=== PATIENT | female | born 1970 | race African-American/Black ===

== ENCOUNTER 2020-01-20 08:09 | Inpatient (IN) ==
[2020-01-20] MEDS ORDERED: G.I. COCKTAIL PO ONE (08:30)
[2020-01-20] MEDS ORDERED: ASPIRIN PO ONE (08:31)
[2020-01-20] MEDS ORDERED: PLAVIX PO ONE (08:39)
--- NOTE | 2020-01-20 09:00 | PROVIDER DOCUMENTATION ---
HPI-Chest Pain - General Chief Complaint: Chest Pain Stated Complaint: burning in chest Time Seen by Provider: 01/20/20 08:12 Allergies/Adverse Reactions: Patient Allergies Allergy/AdvReac Type Severity Reaction Status Date / Time NSAIDS (Non-Steroidal Allergy VOMITING Verified 01/20/20 09:35 Anti-Inflamma Home Medications: Home Medication List Medication Instructions Recorded Confirmed Last Taken Type NK [No Home Medications] 08/11/17 01/20/20 Unknown History - History of Present Illness-CP Nature of Presenting Problem: Patient is a 49 yo F who presents to the ED c/o "burning" in her chest that started on Monday. She achieved no relief with OTC antacids, she says the chest discomfort is worse with swallowing both solids and liquids. Location: reports: substernal Chest Pain Radiation: reports: no radiation Quality of Pain: reports: burning Severity in ED: moderate Onset/Duration: 3 days ago Timing: still present Context/Activities at Onset: reports: light activity Modifying Factors: improves with: nothing Associated Symptoms: reports: denies symptoms Aspirin Treatment Today: no aspirin today Prior Chest Pain/Cardiac Workup: reports: other (Patient reports she was told she had an arterial blockage 6 years ago in [place].) Similar Symptoms Previously?: Yes Recently Seen Here or By Another Healthcare Provider: No Review of Systems - Adult - REVIEW OF SYSTEMS - ADULT Constitutional: reports: no symptoms reported Eyes: reports: no symptoms reported Ears, Nose, Mouth & Throat: reports: no symptoms reported Cardiovascular: reports: chest pain (Burning) Respiratory: reports: no symptoms reported Gastrointestinal: reports: no symptoms reported Genitourinary: reports: no symptoms reported Musculoskeletal: reports: no symptoms reported Integumentary: reports: no symptoms reported Neurological: reports: no symptoms reported Psychiatric: reports: no symptoms reported Endocrine: reports: no symptoms reported Hematologic/Lymphatic: reports: no symptoms reported Allergic/Immunologic: reports: no symptoms reported All Other Systems: Reviewed and Negative Past History - Adult - PAST MEDICAL HISTORY-ADULT Review of Records: reports: Old Records Reviewed, Nursing Assessment Review, Medications Reviewed, Social history reviewed & non-contributory. Major Childhood Illnesses: reports: denies history Cardiovascular: reports: HTN, [place], other (vascular problem with aorta) Respiratory: reports: denies history Gastrointestinal: reports: denies history Obstetrical/Gynecological: reports: denies history Genitourinary: reports: denies history Musculoskeletal: reports: denies history Neurological: reports: CVA Endocrine/Immune: reports: denies history Other Conditions: reports: denies history - PRIOR SURGERIES/PROCEDURES Surgical/Procedure History: reports: cholecystectomy - IMMUNIZATION STATUS Childhood Immunizations: See Nurse Assessment Flu Vaccine: See Nurse Assessment - FAMILY HISTORY Family History: reviewed, not pertinent - SOCIAL HISTORY Smoking: cigarettes Provider spent 3-5 mins advising pt. on dangers of tobacco.: Discussed manners to quit use, and f/u contacts for add'l counseling. Substance Use: none/never Alcohol Use Frequency: never Living Situation: family Physical Exam-General - PHYSICAL EXAM-ADULT Initial Vital Signs Reviewed: Yes (wnl) - CONSTITUTIONAL General Appearance: appears well - EYES Eyes: PERRL/EOMI - HEAD, EARS, NOSE, MOUTH & THROAT HENMT: normocephalic/atraumatic - NECK Neck: non-tender - RESPIRATORY Respiratory: chest non-tender, lungs clear, normal breath sounds - CARDIOVASCULAR Cardiovascular: normal peripheral pulses, regular rate, rhythm, no edema, no gallop, no JVD, no murmur - GASTROINTESTINAL (ABDOMEN) Abdominal Exam: normal bowel sounds, non tender, soft, no organomegaly - LYMPHATIC Lymphatic: no adenopathy - MUSCULOSKELETAL Back Exam: normal inspection Extremity: normal range of motion - SKIN Integumentary: normal color - NEUROLOGIC Neurologic: grossly normal - PSYCHIATRIC Psych/Mental Status: oriented x 3 - HEART Score HEART Score: History: Slightly Suspicious HEART Score: ECG: Non-Specific Repolarization Disturbance/LBBB/PM HEART Score: Age: 45-65 Years HEART Score: Risk Factors for Atherosclerotic Disease: > or = 3 Risk Factors or History of Atherosclerotic Disease HEART Score: Troponin: 1-3x Normal Limit (Moderate risk) Total HEART Score:: 5 Progress - PLAN OF CARE/RESULTS Progress/Plan/Lab Results: Laboratory Results - last 24 hr 01/20/20 01/20/20 01/20/20 09:22 09:22 09:22 WBC 12.90 H RBC 5.34 Hgb 15.1 Hct 44.0 MCV 82.4 MCH 28.3 MCHC 34.3 RDW Std Deviation 12.9 Plt Count 277 MPV 10.4 Immature Gran % (Auto) 0.2 Neut % (Auto) 79.5 H Lymph % (Auto) 13.2 L [place] % (Auto) 6.2 Eos % (Auto) 0.8 Baso % (Auto) 0.1 Immature Gran # (Auto) 0.03 Neut # (Auto) 10.26 H Lymph # (Auto) 1.70 [place] # (Auto) 0.80 H Eos # (Auto) 0.10 Baso # (Auto) 0.01 PT INR PTT (Actin FS) Sodium 142 Potassium 3.8 Chloride 104 Carbon Dioxide 22 L Anion Gap 16 BUN 14 Creatinine 0.9 Estimated GFR/1.73 m2 > 60 BUN/Creatinine Ratio 16 Glucose 112 H Estimat Average Glucose Hemoglobin A1c Calculated Osmolality 284 Calcium 9.7 Total Bilirubin 0.75 AST 18 ALT 12 Alkaline Phosphatase 84 Creatine Kinase 88 Troponin T High Sens 49 H Total Protein 7.4 Albumin 4.2 Globulin 3.2 Albumin/Globulin Ratio 1.3 Triglycerides Cholesterol LDL Cholesterol VLDL Cholesterol, Calc HDL Cholesterol Coronary Risk Interp TSH Free T4 01/20/20 01/20/20 01/20/20 09:22 09:22 09:22 WBC RBC Hgb Hct MCV MCH MCHC RDW Std Deviation Plt Count MPV Immature Gran % (Auto) Neut % (Auto) Lymph % (Auto) [place] % (Auto) Eos % (Auto) Baso % (Auto) Immature Gran # (Auto) Neut # (Auto) Lymph # (Auto) [place] # (Auto) Eos # (Auto) Baso # (Auto) PT 13.0 INR 0.98 PTT (Actin FS) 29.5 Sodium Potassium Chloride Carbon Dioxide Anion Gap BUN Creatinine Estimated GFR/1.73 m2 BUN/Creatinine Ratio Glucose Estimat Average Glucose 114 Hemoglobin A1c 5.6 Calculated Osmolality Calcium Total Bilirubin AST ALT Alkaline Phosphatase Creatine Kinase Troponin T High Sens Total Protein Albumin Globulin Albumin/Globulin Ratio Triglycerides 173 H Cholesterol 288 H LDL Cholesterol 214 VLDL Cholesterol, Calc 35 HDL Cholesterol 39 L Coronary Risk Interp 7.00 TSH Free T4 01/20/20 09:22 WBC RBC Hgb Hct MCV MCH MCHC RDW Std Deviation Plt Count MPV Immature Gran % (Auto) Neut % (Auto) Lymph % (Auto) [place] % (Auto) Eos % (Auto) Baso % (Auto) Immature Gran # (Auto) Neut # (Auto) Lymph # (Auto) [place] # (Auto) Eos # (Auto) Baso # (Auto) PT INR PTT (Actin FS) Sodium Potassium Chloride Carbon Dioxide Anion Gap BUN Creatinine Estimated GFR/1.73 m2 BUN/Creatinine Ratio Glucose Estimat Average Glucose Hemoglobin A1c Calculated Osmolality Calcium Total Bilirubin AST ALT Alkaline Phosphatase Creatine Kinase Troponin T High Sens Total Protein Albumin Globulin Albumin/Globulin Ratio Triglycerides Cholesterol LDL Cholesterol VLDL Cholesterol, Calc HDL Cholesterol Coronary Risk Interp TSH 2.17 Free T4 1.47 Orders Category Date Time Status Admit - [facility] Routine AdmDCTranf 01/20/20 12:33 Active Notify MD if DIRECTED Care 01/20/20 14:11 Active Old records/chart to unit .From other facility Care 01/20/20 12:37 Active [facility] DIRECTED Care 01/20/20 14:11 Active Vital Signs Order Q 4-HR ASSESS Care 01/20/20 14:11 Active Z-Document. for Tele Applied ORDERED Care 01/20/20 14:11 Active Physician/Provider Consults Routine Cons 01/20/20 12:02 Ordered NPO Diet 01/20/20 12:34 Completed CHEST-2 VIEWS [RAD] Stat Exams 01/20/20 08:32 Completed US AORTA [US] Stat Exams 01/20/20 11:29 Completed A1C HGB W EST AVG GLUCOSE [CHEM] Stat Lab 01/20/20 09:22 Completed CBC WITH ELECTRONIC DIFF [HEME] Q24H Lab 01/21/20 06:00 Ordered CBC WITH ELECTRONIC DIFF [HEME] Q24H Lab 01/22/20 06:00 Ordered CBC WITH ELECTRONIC DIFF [HEME] Q24H Lab 01/23/20 06:00 Ordered CBC WITH ELECTRONIC DIFF [HEME] Q24H Lab 01/24/20 06:00 Ordered CBC WITH ELECTRONIC DIFF [HEME] Q24H Lab 01/25/20 06:00 Ordered CBC WITH ELECTRONIC DIFF [HEME] Q24H Lab 01/26/20 06:00 Ordered CBC WITH ELECTRONIC DIFF [HEME] Q24H Lab 01/27/20 06:00 Ordered CBC WITH ELECTRONIC DIFF [HEME] Stat Lab 01/20/20 09:22 Completed CK PROFILE [SP CHEM] Q8H Lab 01/20/20 19:59 Completed CK PROFILE [SP CHEM] Q8H Lab 01/21/20 04:00 Ordered CK PROFILE [SP CHEM] Stat Lab 01/20/20 09:22 Completed COMPREHENSIVE METABOLIC PANEL [CHEM] Q24H Lab 01/21/20 06:00 Ordered COMPREHENSIVE METABOLIC PANEL [CHEM] Q24H Lab 01/22/20 06:00 Ordered COMPREHENSIVE METABOLIC PANEL [CHEM] Q24H Lab 01/23/20 06:00 Ordered COMPREHENSIVE METABOLIC PANEL [CHEM] Q24H Lab 01/24/20 06:00 Ordered COMPREHENSIVE METABOLIC PANEL [CHEM] Q24 Lab 01/25/20 06:00 Ordered COMPREHENSIVE METABOLIC PANEL [CHEM] Q24H Lab 01/26/20 06:00 Ordered COMPREHENSIVE METABOLIC PANEL [CHEM] Q24H Lab 01/27/20 06:00 Ordered COMPREHENSIVE METABOLIC PANEL [CHEM] Stat Lab 01/20/20 09:22 Completed FREE T4 Stat Lab 01/20/20 09:22 Completed LIPID PROFILE W/CALC LDL [LIPIDS] Routine Lab 01/20/20 09:22 Completed MAGNESIUM [CHEM] Q24 Lab 01/21/20 06:00 Ordered MAGNESIUM [CHEM] Q24 Lab 01/22/20 06:00 Ordered MAGNESIUM [CHEM] Q24 Lab 01/23/20 06:00 Ordered MAGNESIUM [CHEM] Q24 Lab 01/24/20 06:00 Ordered MAGNESIUM [CHEM] Q24 Lab 01/25/20 06:00 Ordered MAGNESIUM [CHEM] Q24 Lab 01/26/20 06:00 Ordered MAGNESIUM [CHEM] Q24 Lab 01/27/20 06:00 Ordered PROTIME WITH INR [COAG] Stat Lab 01/20/20 09:22 Completed PTT [COAG] Stat Lab 01/20/20 09:22 Completed TROPONIN T HIGH SENSITIVITY Q8H Lab 01/20/20 19:59 Completed TROPONIN T HIGH SENSITIVITY Q8H Lab 01/21/20 04:00 Ordered TROPONIN T HIGH SENSITIVITY Stat Lab 01/20/20 09:22 Completed TROPONIN T HIGH SENSITIVITY Stat Lab 01/20/20 13:18 Completed TSH Stat Lab 01/20/20 09:22 Completed URINE DRUG SCREEN Stat Lab 01/20/20 14:02 Completed 0.9% Sodium Chloride Inj [Ns] 1,000 ml Med 01/20/20 12:50 Discontinued .ROUTE As directed Acetaminophen [Tylenol] Med 01/20/20 12:33 Active 650 mg PO Q6H PRN PRN Anesthesia Pb Set 88 in 5742 Med 01/20/20 12:49 Discontinued 1 each .ROUTE .STK-MED ONE Aspirin Med 01/20/20 08:31 Discontinued 325 mg PO NOW ONE Aspirin EC Med 01/21/20 09:00 Active 81 mg PO DAILY [place] [address] Med 01/20/20 12:49 Discontinued 1 each .ROUTE .STK-MED ONE Clopidogrel [Plavix] Med 01/20/20 08:39 Discontinued 300 mg PO NOW ONE Enoxaparin 1 mg/kg [Lovenox 1 mg/kg] Med 01/20/20 10:41 Discontinued 1 each SUBQ NOW ONE Heparin 1000 Units/Ns Med 01/20/20 11:56 Discontinued 2,000 unit in 1,000 ml .ROUTE As directed Hydromorphone [Dilaudid] Med 01/20/20 12:49 Discontinued 1 mg .ROUTE .STK-MED ONE Lido/Rober[place]on Alk/Al&mg Hydrox [G.i. Cocktail] Med 01/20/20 08:30 Discontinued 30 ml PO NOW ONE Metoprolol [Lopressor] Med 01/20/20 11:08 Discontinued 50 mg PO NOW ONE Midazolam [Versed] Med 01/20/20 12:49 Discontinued 2 mg .ROUTE .STK-MED ONE Morphine Med 01/20/20 12:33 Active See Dose Instructions IV Q5M PRN PRN Nitroglycerin Med 01/20/20 11:08 Discontinued 1 inch TOP NOW ONE Nitroglycerin Sl [Nitroglycerin] Med 01/20/20 12:33 Active 0.4 mg SL Q5M PRN PRN Omeprazole [Prilosec] Med 01/20/20 21:00 Active 20 mg PO BID Ondansetron [Zofran] Med 01/20/20 12:33 Active 4 mg IV Q4H PRN PRN Verapamil [Isoptin] Med 01/20/20 11:56 Discontinued 10 mg .ROUTE .STK-MED ONE Oxygen Device Routine Oth 01/20/20 14:11 Completed Telemetry [OM.EQ] Routine Oth 01/20/20 14:11 Active EKG [EKG] Routine Ther 01/21/20 07:00 Ordered EKG [EKG] Stat Ther 01/20/20 08:20 Draft EKG [EKG] Stat Ther 01/20/20 10:19 Draft Echo Spec/Color Doppler Routine Ther 01/20/20 11:29 Ordered Left or Right Heart Cath Routine Ther 01/20/20 11:29 Ordered Transfer/Admit Order [TRANSFER] Routine Transfer 01/20/20 12:29 Completed Result Diagrams: 01/20/20 09:22 01/20/20 09:22 - EKG 1 Time of EKG reading by physician:: 08:30 EKG Read and Signed by:: Cherri Ramsey EKG Interpretation (*Must complete 3 of following elements*): Abnormal Rate: 90 Rhythm: NSR [place]: left ST Wave: non-specific ST changes (ST elevation in V3 and t wave inversions V5- V6) 2 Time of EKG reading by physician:: 10:40 EKG Read and Signed by:: Cherri Ramsey Rate: 107 Rhythm: Sinus tachycardia [place]: left ST Wave: depressed (Lateral leads) Prior EKG Comparison: changes noted (ST depression now evident in lateral leads) - XRAY 1 XRAY Study: Chest, other Impression: See EMR Report (EXAM: CHEST-2 VIEWS HISTORY: chest pain TECHNIQUE: Two views COMPARISON: 08/11/2017 FINDINGS: The lungs are well expanded. The heart is not enlarged. The vessels are not distended. There are no infiltrates. No pleural effusions. IMPRESSION: No acute abnormality. Electronically signed by Bryn Felix 01/20/2020 8:56 AM 01/20/20855 Interpreting Physician: Bryn Felix MD Dictated Date/Time: 01/20/20855 cc: Cherri Ramsey MD; None,PCP) - CONSULTS/PCP/HOSPITALIST Notification #1 *Consult/PCP/Hospitalist*: [id number] Time Discussed: 11:10 (Patient seen in the ED by cardio, will be taken to dental lab technician ) Reason/Comments: NSTEMI Consult Disposition: Will see in ED #2 Consult: Hospitalist Time Discussed: 11:47 (Admit to Dr. Pickering) Departure - Departure Date of Disposition Decision: 01/20/20 Time of Disposition Decision: 11:21 DIAGNOSIS: NSTEMI (non-ST elevated myocardial infarction) Disposition: ADMITTED INPATIENT 09 Certified Medical Emergency: Emergent Condition: Serious - Critical Care Note This patient required my direct & personal management of CC.: No Attestation - Physician/ ELLI Attestation Patient care was provided by Advanced Practice Provider:: No The physician spent face to face time with patient:: Yes Advanced Practice Provider documentation review:: Supervising physician onsite and consulted in the evaluation and care of this patient. The physician did have a face to face encounter with the patient.
[2020-01-20 09:54] LABS: BASO# 0.01 X1000 (0.0-0.2); BASO% 0.1 % (0.0-0.8); EOS% 0.8 % (0.0-10.0); HEMOGLOBIN 15.1 g/dL (12.0-16.0); IMM GRAN# 0.03 X1000 (0.0-0.04); IMM GRAN% 0.2 % (0.0-0.5); LYMPH% 13.2 % (20.5-51.1); MCH 28.3 PG (27-31); MCHC 34.3 g/dL (33-37); MCV 82.4 FL (81-99); MONO% 6.2 % (1.7-9.3); MPV 10.4 FL (7.4-10.4); NEUT# 10.26 X1000 (1.4-6.5); NEUT% 79.5 % (42.2-75.2); PLT 277 X1000 (130-400); RBC 5.34 XMIL (4.2-5.4); RDW 12.9 % (11.5-14.5)
[2020-01-20 10:01] LABS: INR 0.98
[2020-01-20 10:02] LABS: PTT 29.5 Seconds (22.3-41.8)
[2020-01-20 10:13] LABS: AGAP 16; ALB/GLOB RATIO 1.3; ALBUMIN 4.2 g/dL (3.5-5.0); ALKALINE PHOSPHATASE 84 U/L (32-104); BUN 14 mg/dL (8-22); CALCIUM 9.7 mg/dL (8.8-10.2); CHLORIDE 104 mmol/L (98-107); CK PROFILE 88 U/L (24-173); COSMO 284; CREATININE 0.9 mg/dL (0.5-0.9); ESTIMATED GFR > 60; GLUCOSE 112 mg/dL (70-104); GOT 18 U/L (10-30); GPT 12 U/L (10-36); POTASSIUM 3.8 mmol/L (3.5-5.1); SODIUM 142 mmol/L (136-145); TCO2 22 mmol/L (25-35); TOTAL BILIRUBIN 0.75 mg/dL (0.20-1.00); TOTAL PROTEIN 7.4 g/dL (6.3-8.3)
--- NOTE | 2020-01-20 10:22 | EKG Report ---
Test Performed on : 01/20/2020 08:25:50 AM Test Reason : CP Blood Pressure : / mmHG Vent. Rate : 090 BPM Atrial Rate : 090 BPM P-R Int : 176 ms QRS Dur : 104 ms QT Int : 378 ms P-R-T Axes : 048 -14 042 degrees QTc Int : 462 ms Normal sinus rhythm. Possible Left atrial enlargement Left ventricular hypertrophy T wave abnormality, consider lateral ischemia Prolonged QT Abnormal ECG When compared with ECG of 11-AUG-2017 23:33, premature ventricular complexes. are no longer present WA interval has decreased Unconfirmed Result
--- NOTE | 2020-01-20 10:36 | EKG Report ---
Test Performed on : 01/20/2020 10:35:13 AM Test Reason : CP Blood Pressure : / mmHG Vent. Rate : 107 BPM Atrial Rate : 107 BPM P-R Int : 172 ms QRS Dur : 104 ms QT Int : 362 ms P-R-T Axes : 067 -14 069 degrees QTc Int : 483 ms Sinus tachycardia. Biatrial enlargement Left ventricular hypertrophy with repolarization abnormality Abnormal ECG When compared with ECG of 20-JAN-2020 08:25, (Unconfirmed) No significant change was found Unconfirmed Result
[2020-01-20] MEDS ORDERED: LOVENOX 1 MG/KG SUBQ ONE (10:41)
[2020-01-20] MEDS ORDERED: LOPRESSOR PO ONE (11:08)
[2020-01-20] MEDS ORDERED: NITROGLYCERIN TOP ONE (11:08)
[2020-01-20] MEDS ORDERED: HEPARIN 1000 UNITS/NS 2,000 UNIT/1,000 ML IV.SOLN ONE (11:56)
[2020-01-20] MEDS ORDERED: ISOPTIN ONE (11:56)
--- NOTE | 2020-01-20 12:30 | CARDIOLOGY CONSULTATION ---
DATE: 01/20/2020 CHIEF COMPLAINT ON PRESENTATION: Chest and abdominal pain. HISTORY OF PRESENT ILLNESS: Ms. Santos is a 49-year-old, black female with a history of hypertension, who has been noncompliant with followup with primary care physicians. She presents for evaluation of this symptom that has been going on for several days. It is described as a burning sensation, and seems to hurt most when she swallows foods and liquids. There is no overt exertional complaint. She has been taking some [id number] chewable antacids with limited relief. She reports no previous cardiac history, but it sounds like she has been told that she has aortic vascular disease, and has not been followed up regarding this. This was diagnosed in [place] when she was visiting family, and she never followed up with it afterwards. She denies any overt orthopnea. PAST MEDICAL HISTORY: Significant for: 1. Presumed aortic atherosclerosis. She was told several years ago in [place] that she had a possibly occluded aorta, but she has not followed up. 2. Hypertension, not compliant with medications. 3. Hyperlipidemia, not compliant with medications. SOCIAL HISTORY: She does smoke. She works at [employer]. FAMILY HISTORY: Significant for hypertension. REVIEW OF SYSTEMS: A 10-system review of systems is negative, except for those things mentioned in the HPI. PHYSICAL EXAMINATION: Vital Signs: She is afebrile, heart rate is 109, blood pressure 130/75. General: She is in no acute distress, sitting up in bed. HEENT: Oropharynx is moist. Normal dentition. Eye examination shows pink conjunctivae, white sclerae. Neck: No obvious thyromegaly or thyroid tenderness. Cardiovascular: She sounds to be in a regular rate and rhythm. She has no obvious murmurs. She has no S3. She has no lower extremity edema. Chest: Clear bilaterally. She has no increased work of breathing. Abdomen: Soft, nontender, nondistended. She has no obvious organomegaly. Skin: Warm and dry throughout without any rashes. Neurological: She is moving all extremities well. She has no lateralizing deficits. PERTINENT DATA: Her chest x-ray shows essentially an unremarkable study with no acute abnormalities. She had 2 separate EKGs. The initial demonstrates sinus rhythm, nonspecific lateral changes with poor data quality. The subsequent that was taken on 01/20/2020 at 10:35 shows sinus rhythm, rate of 107 beats per minute. She has ischemic-appearing ST-segment depression and T-wave inversions in V4 through V6. Her lab data demonstrates a white count of 12.9, hematocrit of 44, platelet count is 277,000. Her sodium is 142, potassium 3.8, BUN is 14, creatinine 0.9. Her initial troponin was 49. This was checked at 9:22 this morning. ASSESSMENT: Ms. Santos is a 49-year-old female with a history of vascular disease and hypertension, as well as continued smoking, who presented with chest pain that is atypical for coronary ischemia. PLAN: At this point, her symptoms are very atypical. However, she has an elevated troponin, a history of presumed aortic vascular disease, continued tobacco use, and an EKG that is suggestive of ischemic changes. I would recommend cardiac catheterization for further delineation of her coronary anatomy. Presently, she has been loaded on Plavix, as well as given an aspirin. She was given a 50 mg dose of metoprolol. Will proceed from there. I have ordered an echo, as well as an aorta ultrasound to further evaluate the previously noted history. cc: Ritesh Riley MD
[2020-01-20 12:31] LABS: CHOLESTEROL 288 mg/dL (0-200); HDL 39 mg/dL (45-65); LDL 214 mg/dL; TRIGLYCERIDES 173 mg/dL (35-135); VLDL 35 mg/dL
[2020-01-20] MEDS ORDERED: TYLENOL PO PRN (12:33)
[2020-01-20] MEDS ORDERED: ZOFRAN IV PRN (12:33)
[2020-01-20] MEDS ORDERED: NITROGLYCERIN SL PRN (12:33)
[2020-01-20] MEDS ORDERED: MORPHINE IV PRN (12:33)
[2020-01-20] MEDS ORDERED: CLAVE TWINSITE 32 IN 11959 ONE (12:49)
[2020-01-20] MEDS ORDERED: VERSED ONE (12:49)
[2020-01-20] MEDS ORDERED: ANESTHESIA PB SET 88 IN 5742 ONE (12:49)
[2020-01-20] MEDS ORDERED: DILAUDID ONE (12:49)
[2020-01-20] MEDS ORDERED: NS 1,000 ML ONE (12:50)
[2020-01-20 13:00] LABS: HEMOGLOBIN A1C 5.6 % (4.8-6.0)
[2020-01-20 13:08] LABS: FREE T4 1.47 ng/dL (0.93-1.70); TSH 2.17 uIUmL (0.27-4.20)
[2020-01-20] MEDS ORDERED: ZOFRAN ONE (13:50)
--- NOTE | 2020-01-20 14:16 | CARDIAC CATH REPORT ---
PROCEDURE NAME: - INDICATION: Non ST-elevation NE. PROCEDURES PERFORMED: 1. Left heart catheterization. 2. Selective coronary angiography. 3. Left ventriculogram. PROCEDURE IN DETAIL: Ms. Santos was brought to the catheterization laboratory in a fasting state. Informed consent was obtained. Prepped in the usual fashion. She was anesthetized over the right radial artery, and a 5-Jamaican sheath was placed via true Seldinger technique. Radial cocktail was administered. Catheters were introduced. Hemodynamic measurements were made in the ascending thoracic aorta. Coronary angiography was performed in multiple views using JL-3.5 and JR-4 diagnostic catheters. Left heart catheterization and left ventriculogram were performed using a 5-Jamaican angled pigtail. At the conclusion of the procedure, all sheaths and catheters were removed. TR band was left inflated at 8 mL of air. Good capillary refill. Good hemostasis. 10 mL of blood loss. 105 mL of IV contrast. No apparent complications. FINDINGS: 1. The left main originates from the left coronary cusp. There is diffuse, roughly 10% to 20% disease. 2. Left anterior descending originates from the left main. There is a late proximal, early midvessel 90% lesion. There is a very large diagonal versus obtuse marginal that comes off very early. This appears to have proximal 30% to 40% disease, late vessel mild luminal regularities. There is a cascade of diagonal branches that come off that are relatively small after that. The distal left anterior descending wraps around the apex. 3. The circumflex is essentially occluded proximally, after what it appears it gives off a very large obtuse marginal. This obtuse marginal branch does not appear to have any significant obstruction. It appears to have 30% to 40% disease proximally, mild luminal irregularities in the more distal vessel. 4. Right coronary is largely nondominant. There does appear to be some very small severe branch vessel disease that is seen with some [id number] collateralization. Overall, I do not see any clear severe obstructions in the right coronary. There does appear to be ostial 30% to 40% disease. 5. Aortic blood pressure 160/79, with a mean of 111. Left ventricle pressure 152/19, with an LVEDP of 38. 6. Left ventriculogram demonstrates a reduced ejection fraction on the order of 35% to 40%. There is akinesis of the apex and the distal inferior wall, as well as the more basal inferior wall. There does appear to be 2+ to 3+ mitral regurgitation. Relative hypokinesis of the anterior wall as well. The LV cavity appears large. ASSESSMENT: Ms. Santos is a 49-year-old female who has been noncompliant with antihypertensive therapy, antihyperlipidemic therapy, and smoking cessation. She reportedly has a history of aortic vascular disease, which is unclear right now. She presented with chest discomfort, abnormal electrocardiogram, and elevated cardiac enzymes. 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 We will discuss the case with the interventionalist at [facility]. We will continue to do risk factor assessment with an ultrasound of her abdominal aorta, evaluation of her echo. We will check a hemoglobin A1c as well. I will initiate her on Entresto 24/26 b.i.d. and metoprolol at 25 b.i.d. We will start Lipitor 40 mg p.o. at bedtime. Check laboratories in the morning, as well as an EKG. I will give her 40 mg of Lasix this evening, as well as 40 mg daily thereafter. The ER loaded her with 300 mg of Plavix earlier. We will discuss the case with the Interventional Service. cc: Ritesh Riley MD
[2020-01-20 14:30] LABS: UR AMPHETAMINES QUAL NONE DETECTED (NONE DETECT); UR BARBITUATES QUAL NONE DETECTED (NONE DETECT); UR BENZODIAZEPIN QUAL NONE DETECTED (NONE DETECT); UR CANNABINOIDS QUAL PRESUMPTIVE POSITIVE (NONE DETECT); UR COCAINE QUAL NONE DETECTED (NONE DETECT); UR METHADONE QUAL NONE DETECTED (NONE DETECT); UR OPIATES QUAL NONE DETECTED (NONE DETECT); UR OXYCODONE QUAL NONE DETECTED (NONE DETECT); UR PCP QUAL NONE DETECTED (NONE DETECT)
[2020-01-20] MEDS ORDERED: SODIUM CHLORIDE 0.9% INJ PRN (14:32)
[2020-01-20] MEDS ORDERED: PHENERGAN IV PRN (14:32)
[2020-01-20] MEDS ORDERED: LOVENOX SUBQ ONE (14:45)
[2020-01-20 14:50] LABS: URINE SOURCE CLEAN CATCH
--- NOTE | 2020-01-20 14:54 | HISTORY AND PHYSICAL ---
PRIMARY CARE PROVIDER: No one. CHIEF COMPLAINT: Chest pain. HISTORY OF PRESENT ILLNESS: Ms. Irma Santos is a 49-year-old, female with a medical history of medical noncompliance, hyperlipidemia, hypertension, and possible aortic atherosclerosis. She reports that around 5 or 6 years ago, she went to [facility] in [place], [place], where she was told she had aortic blockage, so we are attempting to get medical records from that. She states that Monday, she started having some chest pain, mostly with p.o. intake, even to the point it would make her sternum feel tender. Rest would make the chest pain improve. It felt like fire behind the sternum. It would occasionally make her nauseated with vomiting, dizzy and lightheaded, but it would not radiate. The symptoms would not improve this morning, so she came for medical attention. She did have slight elevation in the troponin. The first troponin was 49, and the EKG was reported as having some ST depression through some lateral leads. Dr. Riley was consulted by the ER staff, who now plans on doing a left heart catheterization for further evaluation. PAST MEDICAL HISTORY: 1. Hyperlipidemia. 2. Hypertension. 3. Medical noncompliance. 4. Reported aortic blockage or aortic atherosclerosis. 5. Fibromyalgia. 6. Glaucoma. PAST SURGICAL HISTORY: 1. Four sections. 2. Cholecystectomy. 3. Hysteroscopy. SOCIAL HISTORY: Less than a half pack per day smoker, started at the age of 28. No alcohol. Smokes marijuana about twice a week. 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 FAMILY HISTORY: Unknown. She is adopted. ALLERGIES: NSAIDs cause vomiting. HOME MEDICATIONS: None. REVIEW OF SYSTEMS: A 14-point review of systems was complete, and all are negative, except for those mentioned above in the HPI. PHYSICAL EXAMINATION: VITAL SIGNS: Temperature 97.9 degrees, heart rate 109, respiratory rate 20, blood pressure 130/75, O2 saturation 98% on room air. Height 5 feet 2 inches tall, 140 pounds, BMI is 25.6. GENERAL: Ms. Irma Santos is a 49-year-old, female. She is in no acute distress. She is able to answer questions appropriately. HEENT: Atraumatic, normocephalic. Pupils equal, round, reactive to light. Extraocular movements intact. Mucous membranes are moist. NECK: Trachea midline. CARDIOVASCULAR: S1, S2. Regular rate and rhythm. No rubs, gallops, murmurs. No lower extremity edema. There are +2 dorsalis and radial pulses. Negative JVD or carotid bruits. PULMONARY: Clear to auscultation. Bilateral breath sounds. No accessory muscle use or work of breathing noted. GI: Soft, nontender, nondistended. Positive bowel sounds x4. EXTREMITIES: Moves all extremities equally. Full range of motion. NEUROLOGIC: A and O x3. Follows commands. Sensory is intact. SKIN: Warm, dry, intact. LABORATORY DATA: White blood cells 12,000, hemoglobin 15, hematocrit 44, platelet count 277,000. INR 0.98, PTT is 29.5. Sodium 142, potassium 3.8, BUN 14, creatinine 0.9, glucose 112, calcium 9.7. Bilirubin 0.75, AST 18, ALT 12. CK 88, troponin is 49. Albumin 4.2. Triglycerides 173, cholesterol total is 288, LDL is 214, HDL 39. IMAGING: Chest x-ray negative for any acute findings. EKG at 8:20 showed normal sinus rhythm, rate 90, QTc is 462. There did appear to be some ST elevation in lead V3. The EKG at 10:19 a.m. showed sinus tachycardia, rate 107, QTc was 483, and there appears to be some T-wave inversion in leads V4 and V5. ASSESSMENT AND PLAN: 1. Chest pain, possible non ST-elevation myocardial infarction. However, she describes the pain to be almost gastrointestinal, and then there is tenderness when you palpate the sternum. However, it would improve with rest. First troponin was 49. She did have some ST changes in her lateral leads. Dr. Riley was consulted, and she is going to go for a left heart catheterization via the radial approach. In the emergency room, she has received 1 mg/kg of Lovenox, aspirin, Plavix load, gastrointestinal cocktail. She got 50 of metoprolol and an inch of nitroglycerin paste. Will do serial cardiac enzymes, and will transfer her to [facility] for closer observation. 2. Reported aortic blockage or atherosclerosis at another hospital location. We are going to attempt to get those medical records. In the meantime, she has had a stat ultrasound of the aorta ordered to evaluate that. 3. Hyperlipidemia with hypertriglyceridemia. Will need to start her on a statin. 4. Hypertension. She did get metoprolol, but she has not really been all that hypertensive here. She will probably need to resume with the beta art postprocedure. 5. Tobacco abuse. Cessation discussed. 6. Medical noncompliance. Dictated by RASHMI Prince for Shawn Pickering MD cc: RASHMI Prince MD
[2020-01-20 14:55] LABS: BILIRUBIN URINE NEGATIVE (NEGATIVE); BLOOD URINE SMALL (NEGATIVE); COLOR YELLOW; GLUCOSE URINE NEGATIVE (NEGATIVE); KETONE URINE NEGATIVE (NEGATIVE); LEUKOCYTES URINE SMALL (NEGATIVE); NITRITE URINE NEGATIVE (NEGATIVE); PH URINE 6.5; PROTEIN URINE TRACE mg/dL (NEGATIVE); TURBIDITY URINE CLEAR (CLEAR); UR EPITHELIAL CELLS >10 /HPF (<10); URINE BACTERIA NEGATIVE /HPF; URINE WBC <10 /HPF (<10); UROBILINOGEN URINE NORMAL (NORMAL)
[2020-01-20] MEDS ORDERED: LASIX IV ONE (15:00)
--- NOTE | 2020-01-20 15:40 | EKG Report ---
Test Performed on : 01/20/2020 3:29:53 PM Test Reason : post LHC and chest pain Blood Pressure : / mmHG Vent. Rate : 080 BPM Atrial Rate : 080 BPM P-R Int : 204 ms QRS Dur : 114 ms QT Int : 456 ms P-R-T Axes : 036 -22 258 degrees QTc Int : 525 ms Normal sinus rhythm. Possible Left atrial enlargement Left ventricular hypertrophy with repolarization abnormality Possible Inferior infarct , age undetermined Prolonged QT Abnormal ECG When compared with ECG of 20-JAN-2020 10:35, (Unconfirmed) Non-specific change in ST segment in Inferior leads T wave inversion more evident in Anterior leads Confirmed by Dale PEREZ, MSydney Venegas ([id number]) on 01/20/2020 5:31:47 PM
--- NOTE | 2020-01-20 16:19 | Diag Imaging Result Doc PS360 ---
EXAM: US AORTA INDICATION: Hx of severe Ao vascular disease with no follow up TECHNIQUE: COMPARISON: None. FINDINGS: There is patchy atherosclerotic calcification associated with the abdominal aorta. However, there is no evidence of aortic aneurysm. The maximum diameter of the aorta is at the proximal aorta where it measures 2 cm in the greatest dimension. The infrarenal aorta measures up to 1.2 cm in diameter. There is no evidence of iliac artery aneurysm with both iliac arteries measuring up to 0.7 cm in diameter. IMPRESSION: Aortic atherosclerotic calcification but no evidence of aortic aneurysm. Electronically signed by Jamil Driscoll 01/20/2020 4:17 PM
--- NOTE | 2020-01-20 18:19 | HISTORY AND PHYSICAL ---
ADDENDUM REPORT HISTORY OF PRESENT ILLNESS: I have seen and examined Ms. Santos today. Ms. Santos presented because of chest pain for the past 3 days. She is hypertensive and also a chronic smoker. She said she was using some [id number]-[id number] medications for the chest pain which did not improve. Upon presenting to the emergency room, she was evaluated and was found to be fairly stable in her vitals. Blood pressure of 138/80, pulse of 85, respirations 16. EKG showed some T-wave inversion in the lateral leads and she was found to have an abnormal troponin. She was admitted for atypical chest pain versus non-STEMI. A left heart catheterization was done, which the report shows that she has multivessel disease largely contained in the left system with severe left anterior descending lesion and occluded circumflex. She is currently being evaluated for possible transfer to [facility]. ASSESSMENT: 1. Non-STEMI. 2. Severe coronary artery disease with occlusion in the circumflex and 90% occlusion in the left anterior descending artery. 3. Congestive heart failure secondary to ischemic cardiomyopathy. 4. Hypertension. 5. Dyslipidemia. 6. Tobacco use and abuse. The plan is to continue with the current medications. Follow up with further recommendations from Cardiology. Please refer to the details of the history and physical by the nurse practitioner in the chart. I have discussed the plan with her. cc: MD ANTONIETA Castro
[2020-01-20] MEDS: ENTRESTO 24 MG-26 MG TABLET PO SCH (20:02)
[2020-01-20] MEDS: LIPITOR PO SCH (20:02)
[2020-01-20] MEDS: PRILOSEC PO SCH (20:02)
[2020-01-20] MEDS: LOPRESSOR PO SCH (20:03)
[2020-01-21 06:28] LABS: HEMOGLOBIN A1C 5.6 % (4.8-6.0)
--- NOTE | 2020-01-21 07:43 | PROGRESS NOTE ---
DATE: 01/21/2020 SUBJECTIVE: The patient reports breathing okay. No chest pain. No shortness of breath. No palpitations. OBJECTIVE: Vital Signs: Temperature 97.5 degrees, heart rate 100, respiratory rate 19, blood pressure 104/50, and O2 saturation 97% on room air. General: On examination, this is a 49-year- old female lying in bed, in no acute distress. Cardiovascular: S1 and S2 heard. No murmurs, gallops, or rubs. Regular rate and rhythm. Respiratory: Clear bilaterally to auscultation. No work of breathing or using accessory muscles. Abdomen: Soft, nontender to palpation. Bowel sounds present. No organomegaly. Extremities: No clubbing, cyanosis, or edema. Peripheral pulses present in both legs. Neurological: The patient is alert and oriented x3. Moves 4 extremities. LABORATORY DATA: Hemoglobin A1c is 5.6. No labs from today. ASSESSMENT AND PLAN: 1. Zvs-PS-rcggqii elevation myocardial infarction. The patient was admitted because of chest pain here and also because of a past medical history of aortic sclerosis. An ultrasound was ordered which returned normal. The patient has been evaluated by Cardiology. Considering her history of vascular disease and hypertension poorly controlled, they decided to do a cardiac catheterization. She has multivessel disease. They are planning to talk to interventional cardiology and I have discussed with them to see if this patient can be transferred over there. At this point, we will continue with medical treatment with Lipitor 40 mg by mouth at bedtime and also Plavix. The patient has received 1 dose of Lasix. Currently, she is breathing okay, not having any chest pain. Having currently Lovenox 1 mg/kg every 12 hours, beta-blockers as well. We will continue with the same management. 2. Hyperlipidemia. We will continue with statin. 3. Hypertension. Blood pressure is much better controlled. We will continue with the same management. 4. Tobacco abuse. Cessation has been discussed with this patient again today. 5. Medical noncompliance. Aware. 6. Disposition. At this point, we are we are going to talk to Cardiology to see this patient. She will need to be transferred to [facility]. We will follow recommendations from them. cc: Gunnar Bobby MD
--- NOTE | 2020-01-21 07:59 | EKG Report ---
Test Performed on : 01/21/2020 06:48:55 AM Test Reason : chest pain Blood Pressure : / mmHG Vent. Rate : 080 BPM Atrial Rate : 080 BPM P-R Int : 188 ms QRS Dur : 106 ms QT Int : 448 ms P-R-T Axes : 060 -15 232 degrees QTc Int : 516 ms Sinus rhythm. with occasional premature ventricular complexes. Possible Left atrial enlargement Left ventricular hypertrophy with repolarization abnormality Prolonged QT Abnormal ECG When compared with ECG of 20-JAN-2020 15:29, premature ventricular complexes. are now present Confirmed by Patricia Hunter MD ([id number]) on 01/21/2020 4:19:27 PM
[2020-01-21] MEDS: PRILOSEC PO SCH ×2 (08:45→20:26)
[2020-01-21] MEDS: LOPRESSOR PO SCH ×2 (08:45→20:26)
[2020-01-21] MEDS: ASPIRIN EC PO SCH (08:45)
[2020-01-21] MEDS: ENTRESTO 24 MG-26 MG TABLET PO SCH ×2 (08:45→20:26)
[2020-01-21 08:49] LABS: BASO# 0.01 X1000 (0.0-0.2); BASO% 0.1 % (0.0-0.8); EOS# 0.04 X1000 (0.0-0.7); EOS% 0.3 % (0.0-10.0); HEMOGLOBIN 14.8 g/dL (12.0-16.0); IMM GRAN# 0.02 X1000 (0.0-0.04); IMM GRAN% 0.2 % (0.0-0.5); LYMPH# 3.23 X1000 (1.2-3.4); MCH 28.4 PG (27-31); MCHC 34.4 g/dL (33-37); MCV 82.4 FL (81-99); MONO# 1.15 X1000 (0.11-0.59); MONO% 9.6 % (1.7-9.3); MPV 10.9 FL (7.4-10.4); NEUT# 7.52 X1000 (1.4-6.5); NEUT% 62.8 % (42.2-75.2); PLT 267 X1000 (130-400); RBC 5.22 XMIL (4.2-5.4); WBC 11.97 X1000 (4.8-10.8)
[2020-01-21] MEDS ORDERED: LASIX IV SCH (09:00)
[2020-01-21 09:01] LABS: AGAP 18; ALB/GLOB RATIO 1.4; ALBUMIN 4.3 g/dL (3.5-5.0); ALKALINE PHOSPHATASE 81 U/L (32-104); BUN 13 mg/dL (8-22); CALCIUM 9.6 mg/dL (8.8-10.2); CHLORIDE 100 mmol/L (98-107); COSMO 283; CREATININE 0.9 mg/dL (0.5-0.9); ESTIMATED GFR > 60; GLUCOSE 122 mg/dL (70-104); GOT 27 U/L (10-30); GPT 12 U/L (10-36); MAGNESIUM 1.8 mg/dL (1.5-2.7); POTASSIUM 3.8 mmol/L (3.5-5.1); SODIUM 141 mmol/L (136-145); TCO2 23 mmol/L (25-35); TOTAL BILIRUBIN 0.76 mg/dL (0.20-1.00); TOTAL PROTEIN 7.4 g/dL (6.3-8.3)
[2020-01-21 09:26] LABS: AGAP 19; BUN 13 mg/dL (8-22); CALCIUM 9.7 mg/dL (8.8-10.2); CHLORIDE 99 mmol/L (98-107); COSMO 281; CREATININE 0.9 mg/dL (0.5-0.9); ESTIMATED GFR > 60; GLUCOSE 122 mg/dL (70-104); POTASSIUM 3.7 mmol/L (3.5-5.1); SODIUM 140 mmol/L (136-145); TCO2 22 mmol/L (25-35)
--- NOTE | 2020-01-21 14:37 | CARDIOLOGY PROGRESS NOTE ---
DATE: 01/21/2020 SUBJECTIVE: The patient has no pain complaints. Her breathing has been doing well. PHYSICAL EXAMINATION: Afebrile. Heart rate 83. Her blood pressure is 136/73. Her I's and O's are difficult to track secondary to poor intake and output recordings. General: No acute distress. Cardiovascular: She sounds to be in a regular rate and rhythm. I do not hear any obvious murmurs. She has no S3. She has no lower extremity edema. Chest: Clear bilaterally. She has no increased work of breathing. Her abdomen is soft and nontender. PERTINENT DATA: Her white count is 11.9, hematocrit is 43, platelet count 267,000. Her sodium is 140, potassium 3.7, BUN is 13 creatinine 0.9. Her troponin initially was 49 trended up to 122. Most recent check was 114. ASSESSMENT: Ms. Santos is a 49-year-old female with a kmh-AI-zurvqabxc myocardial infarction. PLAN: She has multi-vessel disease. She was given a loading dose of Plavix by the ER physician. At this point, we will hold off transfer to [facility] until likely . I will bump up her dose of Lasix, recheck her labs in the morning. She is on a beta black her beta- art, high-intensity statin, aspirin as well as Entresto. She has a history of noncompliance. She continues to smoke. She had an LDL above 200 on presentation. cc: Ritesh Riley MD
[2020-01-21] MEDS: LIPITOR PO SCH (20:26)
--- NOTE | 2020-01-21 23:00 | ECHO REPORT ---
ORDER DATE: 01/20/2020 MEASUREMENTS: Septal thickness 1.0, left ventricular internal diameter in diastole 4.6, posterior wall thickness 1.0, left ventricular internal diameter in systole 3.5, aortic root 3.3, left atrium 3.0. SUMMARY: 1. Adequate quality study. 2. Aortic valve is trileaflet and opens normally on 2-dimensional images. Peak gradient across aortic valve is less than 10 mmHg. Mitral, tricuspid, and pulmonic valves are without evidence of structural abnormality. There is moderate mitral regurgitation, mild tricuspid regurgitation, and trace pulmonic insufficiency. Estimated systolic PA pressure by Doppler is 35 mmHg. Mild pulmonary hypertension suggested. Aortic root is normal in size. 3. Normal left ventricular dimensions demonstrated. The estimated left ejection fraction approximately 50%. There is akinesis to mild dyskinesis of the basal inferior wall. The basal inferolateral wall is akinetic. No other wall motion abnormalities are evident. Left atrium, right atrium, right ventricle are normal in size with grossly preserved right ventricular systolic function. 4. No pericardial effusion. 5. Appearance of inferior vena cava suggests normal central venous pressure. cc: MD Ritesh Avendano MD
[2020-01-22 06:14] LABS: BASO# 0.03 X1000 (0.0-0.2); BASO% 0.3 % (0.0-0.8); EOS# 0.11 X1000 (0.0-0.7); EOS% 1.1 % (0.0-10.0); HEMATOCRIT 46.5 % (37.0-47.0); HEMOGLOBIN 15.8 g/dL (12.0-16.0); LYMPH# 2.96 X1000 (1.2-3.4); LYMPH% 29.6 % (20.5-51.1); MCV 82.3 FL (81-99); MPV 10.3 FL (7.4-10.4); NEUT# 5.99 X1000 (1.4-6.5); PLT 296 X1000 (130-400); RBC 5.65 XMIL (4.2-5.4); WBC 9.99 X1000 (4.8-10.8)
[2020-01-22 06:40] LABS: AGAP 15; ALBUMIN 4.1 g/dL (3.5-5.0); BUN 17 mg/dL (8-22); CALCIUM 9.2 mg/dL (8.8-10.2); CHLORIDE 101 mmol/L (98-107); COSMO 282; CREATININE 0.9 mg/dL (0.5-0.9); ESTIMATED GFR > 60; GLUCOSE 124 mg/dL (70-104); POTASSIUM 3.8 mmol/L (3.5-5.1); SODIUM 140 mmol/L (136-145); TCO2 24 mmol/L (25-35); TOTAL BILIRUBIN 0.94 mg/dL (0.20-1.00); TOTAL PROTEIN 7.7 g/dL (6.3-8.3)
[2020-01-22 06:41] LABS: ALB/GLOB RATIO 1.1; ALKALINE PHOSPHATASE 81 U/L (32-104); GOT 21 U/L (10-30); GPT 14 U/L (10-36); MAGNESIUM 2.1 mg/dL (1.5-2.7)
[2020-01-22] MEDS: ASPIRIN EC PO SCH (08:15)
[2020-01-22] MEDS: ENTRESTO 24 MG-26 MG TABLET PO SCH ×2 (08:15→20:12)
[2020-01-22] MEDS: PRILOSEC PO SCH ×2 (08:16→20:12)
[2020-01-22] MEDS: LOPRESSOR PO SCH ×2 (08:34→20:11)
[2020-01-22] MEDS ORDERED: LASIX IV SCH (09:00)
--- NOTE | 2020-01-22 09:14 | PROGRESS NOTE ---
DATE: 01/22/2020 SUBJECTIVE: Patient reports feeling fine. Denies any chest pain. Denies any fever or chills. OBJECTIVE: Vital Signs: Temperature 98 degrees, heart rate 92, respiratory rate 20, blood pressure 165/81, and O2 saturation 100% on room air. General: On examination, this is a 49-year- old female lying in bed, in no acute distress. Cardiovascular: S1 and S2 heard. No murmurs, gallops, or rubs. Regular rate and rhythm. Respiratory: Clear bilaterally to auscultation. No work of breathing or using accessory muscles. Abdomen: Soft, nontender to palpation. Bowel sounds present. No organomegaly. Extremities: No clubbing, cyanosis, or edema. Peripheral pulses present in all legs. Neurological: The patient is alert and oriented x3. Moves 4 extremities. LABORATORY DATA: Reviewed. ASSESSMENT AND PLAN: 1. Npf-SX-jtikunq elevation myocardial infarction. At this point, the patient is being followed by Cardiology. The left heart catheterization showed multivessel disease. Most likely she will require open heart surgery. According to Cardiology, we will try to transfer this patient either today at the end of the day or tomorrow morning to [facility] for further evaluation. We will continue with Lovenox 1 mg/kg every 12 hours, beta-blockers. 2. Hyperlipidemia. We will continue with the statin. 3. Hypertension. Blood pressure is under control. We will continue with same management. 4. Tobacco abuse. The patient has been strongly advised to stop smoking. 5. Medical noncompliance. Aware. 6. Disposition. At this point, she is awaiting to be transferred to [facility]. cc: Gunnar Bobby MD
--- NOTE | 2020-01-22 09:19 | CARDIOLOGY PROGRESS NOTE ---
DATE: 01/22/2020 SUBJECTIVE: The patient seems a little bit hostile this morning. She did have some cramping pains in her left arm. That was tender to palpation. PHYSICAL EXAMINATION: Vital Signs: She is afebrile, heart rate 92, blood pressure 165/81. Most of her blood pressures were in the 130s to 140s range. The rest of the physical exam was not done secondary to the patient being hostile. PERTINENT DATA: White count is 9.9, hematocrit 46, platelet count is 296,000. Sodium 140, potassium 3.8, BUN 17, creatinine 0.9. ASSESSMENT: Ms. Santos is a 49-year-old female with multivessel coronary disease, reduced ejection fraction, suggestion of an inferior infarct. PLAN: I will discuss the case with [facility] today, and try to transfer her over. She needs to have coronary artery bypass grafting based on her severe coronary disease/multivessel coronary disease. I have tried to emphasize how important this is given her young age, and bypass has the best chance for a good long-term outcome. The patient is hostile to some extent. In addition, she has the false information that stents in this kind of a situation would be a feasible alternative. They, in fact, may be an alternative, but they would be likely result in a very inferior outcome compared to bypass, and long-term outcome would likely be much worse with PCI. Several of the territories with disease would likely not be able to be revascularized via PCI. The patient has a long history of noncompliance and continued tobacco use. She was not on a statin with an LDL greater than 200 when she, in fact, had been placed on a statin at last hospitalization in [place]. Due to the patient's hostility, I will not be involved in her care further in this hospitalization. I will transfer her over to [facility] for bypass evaluation. She will not be following up with me as an outpatient. 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 The nurse caring for the patient was present in the room during the entire encounter. cc: MD ANTONIETA Horn
[2020-01-22] MEDS: LIPITOR PO SCH (20:12)
[2020-01-22 20:27] VITALS: BP 129/79
--- NOTE | 2020-01-23 10:19 | DISCHARGE SUMMARY ---
ADMISSION DATE: 01/20/2020 DISCHARGE DATE: 01/22/2020 DISCHARGE DIAGNOSES: 1. Aat-ZJ-gnbtrax elevation myocardial infarction. 2. Hyperlipidemia. 3. Hypertension. 4. Tobacco abuse. 5. Medical noncompliance. CONSULTATIONS: Ritesh Riley MD from Cardiology. PROCEDURES: 1. Chest x-ray done on admission showed no acute abnormality. 2. Aorta ultrasound showed aortic atherosclerotic calcification but no evidence of aortic aneurysm. 3. Cardiac catheterization basically showed multivessel disease largely contained to the left system with severe LAD lesion and occluded circumflex. HOSPITAL COURSE: In brief, this is a 49-year-old -[place] female who was brought to the emergency department complaining of chest pain substernal, so with her risk factors, she was admitted to the hospital. Procedures performed as above. The patient was found to have multivessel coronary artery disease. Decision was made to transfer this patient to [facility] for evaluation for cardiac bypass. The patient is going to be transferred to [facility] today. Will continue current medications. cc: Gunnar Bobby MD
== END 2020-01-22 21:37 | disposition short-term general hospital (02) | DRG 282 ==
LOC: SUPCPDRO → ED 08:09 → 2N 12:58 → SUATTDRO 12:58
PROVIDERS: ATTEND Internal Medicine